=== PATIENT | female | born 1955 | race Caucasian/White ===

== ENCOUNTER → 2020-08-04 | Outpatient (CLI) | payer OTHER ==
--- NOTE | 2020-08-04 16:43 | RAD ---
EXAM: Right shoulder, 3 views. HISTORY: Pain. COMPARISON: None. FINDINGS: 3 views of the right shoulder obtained. There is no fracture, dislocation or subluxation. T here is mild acromioclavicular joint spurring and subchondral sclerosis. IMPRESSION: 1. No acute osseous finding. 2. Mild acromioclavicular joint osteoarthritis. Electronically signed by: Keshia Conway MD (08/04/2020 4:41 PM) [id number]
== END ==
LOC: RAD 15:06
PROVIDERS: ATTEND Physician Assistant
DX: M19.011 Primary osteoarthritis, right shoulder (principal)
CPT/HCPCS: 73030